=== PATIENT | female | born 1955 | race Caucasian/White ===

== ENCOUNTER 2017-09-18 10:00 | Outpatient (CLI) | payer BC ==
[2017-09-18 18:52] LABS: BILIRUBIN,DIRECT 0.1 mg/dL (0.1-0.5); BILIRUBIN,TOTAL 0.8 mg/dL (0.2-1.0); TOTAL PROTEIN 7.7 g/dL (6.7-8.2)
== END 2017-09-18 10:01 | disposition home or self-care (01) ==
LOC: LAB.F 10:00
PROVIDERS: ATTEND Physician Assistant
DX: R74.8 Abnormal levels of other serum enzymes (principal)
CPT/HCPCS: 36415; 80076

== ENCOUNTER 2018-09-11 13:11 | Outpatient (CLI) | payer BC | END 2018-09-11 13:12 | disposition home or self-care (01) | LOC: LAB.F 13:11 | PROVIDERS: ATTEND Internal Medicine Rheumatology | DX: M35.3 Polymyalgia rheumatica (principal) | CPT/HCPCS: 36415; 85651; 86140 ==

== ENCOUNTER 2022-09-23 09:05 | Outpatient (CLI) | payer MEDICARE, OTHER ==
--- NOTE | 2022-09-23 12:33 | Ultrasound Report ---
PROCEDURE: Abdomen Limited INDICATIONS: ELEVATED LIVER ENZYMES TECHNIQUE: Real-time focused scanning was performed of the abdomen, with image documentation. COMPARISON: None FINDINGS: The liver has a normal size and appearance measuring 11.3 cm. There is homogenous smooth echotexture with no mass or intrahepatic biliary ductal dilatation. There is a gallbladder polyp measuring 6 x 5 x 9 mm. No gallbladder wall thickening or pericholecystic fluid. No gallstones. The common bile duct measures 3 mm. The pancreas is well-visualized and has no mass, pancreatic ductal dilatation, or surr ounding inflammation. The right kidney has a normal size and appearance. IMPRESSION: 1. No acute ultrasound abnormality of the abdomen. 2. 6 x 5 x 9 mm incidental gallbladder polyp. Recommend annual ultrasound follow-up. If in the future there is growth over 10 mm recommend surgical consult. Reviewed by: Ken Florence on 09/23/2022 12:32 PM PDT Approved by: Ken Florence on 09/23/2022 12:32 PM PDT Station ID: [id number]
== END 2022-09-23 09:06 | disposition home or self-care (01) ==
LOC: DI 09:05
PROVIDERS: ATTEND Nurse Practitioner Family
DX: R74.01 Elevation of levels of liver transaminase levels (principal)

== ENCOUNTER 2024-01-19 09:53 | Outpatient (CLI) | payer MEDICARE, OTHER ==
--- NOTE | 2024-01-19 14:53 | Ultrasound Report ---
PROCEDURE: Abdomen Limited INDICATIONS: GALLBLADDER POLYP TECHNIQUE: Real-time focused scanning was performed of the abdomen, with image documentation. COMPARISONS: None. FINDINGS: Liver: The liver measures 10.4 cm in length and demonstrates mildly increased echogenicity. Gallbladder: The gallbladder wall measures 1.5 mm in diameter. There is a solitary gallbladder polyp which measures 7 mm in diameter in the fundus. No pericholecystic fluid or sonographic Leo sign. N o stones or sludge. Biliary ducts: Intrahepatic bile ducts are non-dilated. Extrahepatic bile duct caliber measures 4.3 mm. Normal is 6-7 mm or less in diameter, or 10 mm or less post-cholecystectomy. Pancreas: Visualized portions of the pancreas are sonographically normal. Right kidney: Normal in size and echotexture. Right kidney measures 9.9 cm long. No hydronephrosis o r nephrolithiasis. No solid masses. No complex renal cystic lesions which require follow-up. Aorta: Visualized aorta is normal in caliber at less than 3 cm. IVC: Intrahepatic inferior vena cava is patent. Miscellaneous: No free abdominal fluid. IMPRESSION: 1. Slightly increased hepatic echogenicity which is most likely related to hepatic steatosis although other sources of hepatocellular dysfunction cannot be excluded. 2. 7 mm gallbladder polyp. Annual sonographic follow-up recommended. Reviewed by: Ania More MD on 01/19/2024 2:51 PM PST Approved by: Ania More MD on 01/19/2024 2:51 PM PST Station ID: [id number]
== END 2024-01-19 09:54 | disposition home or self-care (01) ==
LOC: DI 09:53
PROVIDERS: ATTEND Registered Nurse
DX: R93.2 Abnormal findings on diagnostic imaging of liver and biliary tract (principal)

== ENCOUNTER 2024-05-13 12:53 | Outpatient (CLI) | payer MEDICARE, OTHER ==
--- NOTE | 2024-05-13 16:21 | DEXA Report ---
PROCEDURE: Dexa Spine and/or Hip INDICATIONS: POST MENOPAUSAL TECHNIQUE: Dual energy x-ray absorptiometry (DXA) was performed on a [employer] System. Regions measur ed are the AP Spine, femoral neck, and if needed forearm. COMPARISON: None FINDINGS: Lumbar Spine: Bone Mineral Density: 0.989 g/cm/cm,T score: -1.6. Left Femoral Neck: Bone Mineral Density: 0.670 g/cm/cm, T score: -2.6. Left Hip: Bone Mineral Density: 0.688 g/cm/cm,T score: -2.5. 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 Patients with diagnosis of osteoporosis or osteopenia should have regular bone mineral density assess ment. For those eligible for Medicare, routine testing is allowed once every 2 years. Testing frequ ency can be increased for patients who have rapidly progressing disease or for those who are receivin g medical therapy to restore bone mass. Reviewed by: Taryn Lucas MD on 05/13/2024 4:20 PM PDT Approved by: Taryn Lucas MD on 05/13/2024 4:20 PM PDT Station ID: [id number]
== END 2024-05-13 12:54 | disposition home or self-care (01) ==
LOC: DI 12:53
PROVIDERS: ATTEND Registered Nurse
DX: M81.0 Age-related osteoporosis without current pathological fracture (principal)